=== PATIENT | male | born 2000 | race African-American/Black ===

== ENCOUNTER 2018-02-27 00:12 | Emergency (ER) | payer OTHER, SELFPAY ==
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
== END 2018-02-27 03:04 | disposition home or self-care (01) ==
LOC: ER 00:12
DX: S01.511A Laceration without foreign body of lip, initial encounter (principal); Y04.8XXA Assault by other bodily force, initial encounter; Y93.9 Activity, unspecified; Y92.9 Unspecified place or not applicable
CPT/HCPCS: 70450; 70486; 76377; 99284

== ENCOUNTER 2020-06-09 18:45 | Emergency (ER) | payer SELFPAY ==
[2020-06-09] MEDS ORDERED: LIDOCAINE 1% MPF 30 ML VIAL ONE (19:16)
--- NOTE | 2020-06-09 19:52 | EDPHYS ---
Physician Documentation [facility] Name: Fred Jama II Age: 20 yrs Sex: Male : 2000 Arrival Date: 06/09/2020 Time: 18:48 Bed 20 Private MD: ED Physician Paul Dimas HPI: 06/09 18:56 This 20 yrs old Black Male presents to ER via Law Enforcement with complaints of jmm Laceration To Arm. 18:56 The patient has a laceration occurred at home. Onset: The symptoms/episode jmm began/occurred acutely, just prior to arrival. This is a 20 year old male with no chronic medical conditions that presents to the ED with complaints of right arm laceration after breaking a window. Denies other injury. Patient states he is UTD on tetanus immunizations. . Historical: - Allergies: 18:51 No Known Allergies; hb - Home Meds: 18:51 None [Active]; hb - PMHx: 18:51 None; hb - PSHx: 18:51 None; hb - Immunization history:: Adult Immunizations up to date. - Social history:: Smoking status: Patient reports the use of cigarette tobacco products, denies chronic smoking, but will smoke occasionally. ROS: 18:56 Constitutional: Negative for fever, chills, and weight loss, Cardiovascular: Negative jmm for chest pain, palpitations, and edema, Respiratory: Negative for shortness of breath, cough, wheezing, and pleuritic chest pain. 18:56 Skin: Positive for laceration(s). 18:56 All other systems are negative. Exam: 18:56 Constitutional: This is a well developed, well nourished patient who is awake, alert, jmm and in no acute distress. Head/Face: atraumatic. Eyes: EOMI, no conjunctival erythema appreciated ENT: Moist Mucus Membranes Neck: Trachea midline, Supple Chest/axilla: Normal chest wall appearance and motion. Cardiovascular: Regular rate and rhythm. No edema appreciated Respiratory: Normal respirations, no respiratory distress appreciated Abdomen/GI: Non distended, soft Back: Normal ROM 18:56 Skin: 4 cm laceration noted to the right forearm. 18:56 Neuro: Orientation: is normal, Mentation: is normal, Memory: is normal. 18:56 Psych: Behavior/mood is pleasant, cooperative. Vital Signs: 18:49 BP 142 / 102; Pulse 68; Resp 16; Temp 97.8; Pulse Ox 100% ; Weight 88.45 kg; Height 5 hb ft. 9 in. (175.26 cm); Pain 5/10; 18:49 Body Mass Index 28.80 (88.45 kg, 175.26 cm) hb Laceration: 19:23 Wound Repair of 4cm ( 1.6in ) subcutaneous laceration to right arm. Distal jmm neuro/vascular/tendon intact. Anesthesia: Local anesthetic administered with 5 mls of 1% lidocaine. Wound prep: Moderate cleansing with betadine by me. Skin closed with 8 4-0 Prolene using simple sutures and sterile technique. Patient tolerated well. MDM: 18:56 Patient medically screened. [facility] 19:23 Data reviewed: vital signs, nurses notes. Counseling: I had a detailed discussion with carina the patient and/or guardian regarding: the historical points, exam findings, and any diagnostic results supporting the discharge/admit diagnosis, the need for outpatient follow up, to return to the emergency department if symptoms worsen or persist or if there are any questions or concerns that arise at home. ED course: Patient given wound infection return precautions. Patient understood and agrees with the plan of care. . Administered Medications: 19:47 Drug: Lidocaine (1 %) 20 ml Volume: 20 ml; Route: Infiltration; sg Disposition: 06/10 16:59 Co-signature as Attending Physician, Paul Dimas MD I agree with the assessment and [facility] plan of care. Disposition: 06/09/20 19:24 Discharged to Home. Impression: Laceration of the Right Forearm. - Condition is Stable. - Discharge Instructions: Laceration Care, Adult. - Medication Reconciliation Form, Thank You Letter, Antibiotic Education, Prescription Opioid Use form. - Follow up: Private Physician; When: 2 - 3 days; Reason: Recheck today's complaints, Continuance of care, Re-evaluation by your physician. Signatures: Ravi Bunn RN RN sg Anderson, Corey, MD MD cha Mickail, Joel, PA PA jmm Baxter, Heather, RN RN Corrections: (The following items were deleted from the chart) 06/09 19:47 19:24 06/09/2020 19:24 Discharged to Home. Impression: Laceration of the Right Forearm. sg Condition is Stable. Forms are Medication Reconciliation Form, Thank You Letter, Antibiotic Education, Prescription Opioid Use. Follow up: Private Physician; When: 2 - 3 days; Reason: Recheck today's complaints, Continuance of care, Re-evaluation by your physician. carina
--- NOTE | 2020-06-09 19:52 | ER ---
Nurse's Notes [facility] Name: Fred Jama II Age: 20 yrs Sex: Male : 2000 Arrival Date: 06/09/2020 Time: 18:48 Bed 20 Private MD: Diagnosis: Laceration of the Right Forearm Presentation: 06/09 18:49 Chief complaint: Laceration to right forearm after punching window. Coronavirus screen: hb At this time, the client does not indicate any symptoms associated with coronavirus-19. Ebola Screen: No symptoms or risks identified at this time. Complicating Factors: There are no complicating factors for this patient. Initial Sepsis Screen: Does the patient meet any 2 criteria? No. Patient's initial sepsis screen is negative. Does the patient have a suspected source of infection? No. Patient's initial sepsis screen is negative. Risk Assessment: Do you want to hurt yourself or someone else? Patient reports no desire to harm self or others. Onset of symptoms was June 09, 2020. 18:49 Acuity: PALBITO 4 hb 18:49 Method Of Arrival: Law Enforcement: [facility] Historical: - Allergies: 18:51 No Known Allergies; hb - Home Meds: 18:51 None [Active]; hb - PMHx: 18:51 None; hb - PSHx: 18:51 None; hb - Immunization history:: Adult Immunizations up to date. - Social history:: Smoking status: Patient reports the use of cigarette tobacco products, denies chronic smoking, but will smoke occasionally. Vital Signs: 18:49 BP 142 / 102; Pulse 68; Resp 16; Temp 97.8; Pulse Ox 100% ; Weight 88.45 kg; Height 5 hb ft. 9 in. (175.26 cm); Pain 5/10; 18:49 Body Mass Index 28.80 (88.45 kg, 175.26 cm) hb ED Course: 18:48 Patient arrived in ED. hb 18:50 Triage completed. hb 18:51 Arm band placed on. hb 18:54 Faustino Joaquin PA is PHCP. jm 18:54 Paul Dimas MD is Attending Physician. [facility] 19:20 No provider procedures requiring assistance completed. Patient did not have IV access sg during this emergency room visit. Dressings: Kerlix X 1; dorsal aspect of right forearm. Wound care: to laceration located on dorsal aspect of right forearm was cleaned with soap and water, dressed with 4X4s, Patient tolerated well. 19:40 Patient has correct armband on for positive identification. Bed in low position. Call sg light in reach. Side rails up X2. Pulse ox on. NIBP on. Administered Medications: 19:47 Drug: Lidocaine (1 %) 20 ml Volume: 20 ml; Route: Infiltration; sg Outcome: 19:24 Discharge ordered by . carina 19:40 Discharged to home ambulatory, with [place] [employer] sg 19:47 Patient left the ED. sg 19:51 Condition: good sg 19:51 Discharge instructions given to patient, police, Instructed on discharge instructions, follow up and referral plans. safety practices, wound care, Demonstrated understanding of instructions, follow-up care. Signatures: Ravi Bunn RN RN Faustino Joaquin PA PA jmm Hall, Patricia, RN RN Imani Najera RN RN Corrections: (The following items were deleted from the chart) 19:35 18:49 Method Of Arrival: Law Enforcement: [place] [employer] ph 19:52 19:40 Discharged to home ambulatory, with [place] [employer] sg sg
[2020-06-11 23:16] VITALS: BP 142/102; TEMP 97.8; O2SAT 100
== END 2020-06-09 19:47 | disposition home or self-care (01) ==
LOC: ER 18:45
PROC: 0JQG0ZZ Repair Right Lower Arm Subcutaneous Tissue and Fascia, Open Approach (ICD-10-PCS; principal; 2020-06-09)
DX: S51.811A Laceration without foreign body of right forearm, initial encounter (principal); W25.XXXA Contact with sharp glass, initial encounter; Y93.9 Activity, unspecified; Y92.009 Unspecified place in unspecified non-institutional (private) residence as the place of occurrence of the external cause
CPT/HCPCS: 99283

== ENCOUNTER 2024-08-19 07:29 | Emergency (ER) | payer SELFPAY ==
--- NOTE | 2024-08-19 07:47 | EDPHYS ---
Physician Documentation [facility] Name: Fred Jama II Age: 24 yrs Sex: Male : 2000 Arrival Date: 08/19/2024 Time: 07:29 Bed 14 Private MD: ED Physician Renato Cotter HPI: 08/19 07:48 This 24 yrs old Black Male presents to ER via Ambulatory with complaints of Abdominal ec2 Pain, Nausea, Headache, Fatigue. 07:48 Patient arrives today for improving viral symptoms ongoing for the past week. States ec2 that he has got better and needs a will turn to work excuse otherwise. States that he has an occasional headache as well as some nausea. No vomiting or diarrhea which had previously been present had now resolved. Occasional cough as well as occasional sore throat. Historical: - Allergies: 07:41 No Known Allergies; ll1 - Home Meds: 07:41 None [Active]; ll1 - PMHx: 07:41 None; ll1 - PSHx: 07:41 None; ll1 - Immunization history:: Adult Immunizations up to date. - Infectious Disease History:: Denies. - Social history:: Smoking status: Patient reports the use of cigarette tobacco products, smokes one-half pack cigarettes per day. ROS: 07:48 Constitutional: as per hpi ec2 Exam: 07:48 Constitutional: GEN: NAD Head: atraumatic Eyes: EOMI Ears: External ears are ec2 normal. CV: regular rate LUNGS: no respiratory distress ABD: non-distended SKIN: no evidence of rashes MSK: no evidence of trauma Vital Signs: 07:41 BP 107 / 54; Pulse 54; Resp 17; Temp 98; Pulse Ox 98% ; Weight 90.26 kg; Height 5 ft. ll1 10 in. ; Pain 3/10; 07:41 Body Mass Index 28.55 (90.26 kg, 177.8 cm) ll1 07:41 Pain Scale: Adult ll1 MDM: 07:41 Medical Screening Exam initiated ec2 07:48 Data reviewed: vital signs. ED course: Patient arrives today for a work note in the ec2 setting of recent viral infection with improving symptoms. Examination remarkable for well-appearing nontoxic hemodynamically stable individuals otherwise in no acute distress. Patient with improving symptoms and tolerating p.o., does not appear clinically dehydrated. Doubt pneumonia given lack of significant respiratory symptoms and reassuring examination. Considered obtaining lab work such as CBC and metabolic profile as well as a chest x-ray however given the improvement symptoms did not feel necessary at this time. Will discharge home have patient follow-up with PCP. Return precautions given.. Administered Medications: 08:00 Drug: MetoCLOPramide PO 10 mg PO once Route: PO; ll1 08:02 Follow up: Response: No adverse reaction ll1 08:00 Drug: Acetaminophen PO 1000 mg PO once Route: PO; ll1 08:02 Follow up: Response: No adverse reaction ll1 08:00 Drug: Ibuprofen PO 800 mg PO once Route: PO; ll1 08:02 Follow up: Response: No adverse reaction ll1 Disposition Summary: 08/19/24 07:47 Discharge Ordered Notes: Location: Home ec2 Condition: Stable ec2 Diagnosis - Viral infection, unspecified ec2 Followup: ec2 - With: Private Physician - When: - Reason: Re-evaluation by your physician Discharge Instructions: - Discharge Summary Sheet ll1 - Viral Illness, Adult ec2 Forms: - Work release form ll1 - Medication Reconciliation Form ec2 - Antibiotic Education ec2 - Prescription Opioid Use ec2 - Patient Portal Instructions ec2 - Leadership Thank You Letter ec2 Prescriptions: - Compazine 10 mg Oral Tablet - take 1 tablet ORAL route every 8 hours As needed; 10 tablet; Refills: 0, ec2 Product Selection Permitted Signatures: Mariela Escalera RN RN ll1 Renato Cotter MD MD ec2
--- NOTE | 2024-08-19 07:47 | ER ---
Nurse's Notes [facility] Name: Fred Jama II Age: 24 yrs Sex: Male : 2000 Arrival Date: 08/19/2024 Time: 07:29 Bed 14 Private MD: Diagnosis: Viral infection, unspecified Presentation: 08/19 07:41 Chief complaint: Patient states: Abdominal pain, nausea, MENDOZA, fatigue started . ll1 No fever, starting to feel better now. Coronavirus screen: Client denies travel out of the [place] in the last 14 days. fatigue, headache, muscle pain, nausea, Client presents with at least one sign or symptom that may indicate coronavirus-19. Standard/surgical mask placed on the client. Ebola Screen: Patient denies travel to an Ebola-affected area in the 21 days before illness onset. Initial Sepsis Screen: Does the patient meet any 2 criteria? No. Patient's initial sepsis screen is negative. Does the patient have a suspected source of infection? No. Patient's initial sepsis screen is negative. Risk Assessment: Do you want to hurt yourself or someone else? Patient reports no desire to harm self or others. Onset of symptoms was August 14, 2024. 07:41 Method Of Arrival: Ambulatory ll1 07:41 Acuity: PABLITO 4 ll1 Triage Assessment: 07:43 General: Appears in no apparent distress. Behavior is calm, cooperative, appropriate ll1 for age. General: Reports fatigue for. Pain: Complains of pain in abdomen Pain currently is 3 out of 10 on a pain scale. Quality of pain is described as aching, crampy. Neuro: Reports headache weakness. GI: Reports nausea. Historical: - Allergies: 07:41 No Known Allergies; ll1 - Home Meds: 07:41 None [Active]; ll1 - PMHx: 07:41 None; ll1 - PSHx: 07:41 None; ll1 - Immunization history:: Adult Immunizations up to date. - Infectious Disease History:: Denies. - Social history:: Smoking status: Patient reports the use of cigarette tobacco products, smokes one-half pack cigarettes per day. Screenin:00 [facility] ED Fall Risk Assessment (Adult) History of falling in the last 3 months, ll1 including since admission No falls in past 3 months (0 pts) Confusion or Disorientation No (0 pts) Intoxicated or Sedated No (0 pts) Impaired Gait No (0 pts) Mobility Assist Device Used No (0 pt) Altered Elimination No (0 pt) Score/Fall Risk Level 0 - 2 = Low Risk Oriented to surroundings, Hourly rounding (assess needs \T\ fall precautionary measures) done. Abuse screen: Denies threats or abuse. Nutritional screening: No deficits noted. Tuberculosis screening: No symptoms or risk factors identified. Assessment: 08:00 Reassessment: No changes from previously documented assessment. Patient and/or family ll1 updated on plan of care and expected duration. Pain level reassessed. Patient is alert, oriented x 3, equal unlabored respirations, skin warm/dry/pink. 08:01 GI: Bowel sounds present X 4 quads. Abd is soft and non tender X 4 quads. ll1 Vital Signs: 07:41 BP 107 / 54; Pulse 54; Resp 17; Temp 98; Pulse Ox 98% ; Weight 90.26 kg; Height 5 ft. ll1 10 in. ; Pain 3/10; 07:41 Body Mass Index 28.55 (90.26 kg, 177.8 cm) ll1 07:41 Pain Scale: Adult ll1 ED Course: 07:33 Patient arrived in ED. im 07:38 Renato Cotter MD is Attending Physician. ec2 07:40 Mariela Escalera, MULUGETA is Primary Nurse. ll1 07:40 Arm band placed on Patient placed in an exam room, on a stretcher. ll1 07:43 Triage completed. ll1 08:01 Patient has correct armband on for positive identification. Provided Education on: ll1 return to ED for worsening symptoms. 08:01 No provider procedures requiring assistance completed. Patient did not have IV access ll1 during this emergency room visit. Administered Medications: 08:00 Drug: MetoCLOPramide PO 10 mg PO once Route: PO; ll1 08:02 Follow up: Response: No adverse reaction ll1 08:00 Drug: Acetaminophen PO 1000 mg PO once Route: PO; ll1 08:02 Follow up: Response: No adverse reaction ll1 08:00 Drug: Ibuprofen PO 800 mg PO once Route: PO; ll1 08:02 Follow up: Response: No adverse reaction ll1 Medication: 08:01 VIS not applicable for this client. ll1 Outcome: 07:47 Discharge ordered by . ec2 08:01 Discharged to home ambulatory, 1 08:01 Condition: stable 08:01 Discharge instructions given to patient, Instructed on discharge instructions, follow up and referral plans. medication usage, Demonstrated understanding of instructions, follow-up care, medications, Prescriptions given X 1, 08:02 Patient left the ED. 1 Signatures: Mariela Escalera RN RN 1 Abigail Bhandari Edwin, MD MD ec2
[2024-08-19] MEDS ORDERED: METOCLOPRAMIDE 5 MG TAB ONE (07:51)
[2024-08-19] MEDS ORDERED: ACETAMINOPHEN 500 MG TAB ONE (07:57)
[2024-08-19] MEDS ORDERED: IBUPROFEN 400 MG TAB ONE (07:57)
[2024-08-19 08:57] VITALS: BP 107/54; TEMP 98; O2SAT 98
== END 2024-08-19 08:02 | disposition home or self-care (01) ==
LOC: ER 07:29
DX: B34.9 Viral infection, unspecified (principal); F17.210 Nicotine dependence, cigarettes, uncomplicated
CPT/HCPCS: 99283

== ENCOUNTER 2024-09-08 20:35 | Emergency (ER) | payer SELFPAY ==
--- NOTE | 2024-09-08 22:04 | EDPHYS ---
Physician Documentation [facility] Name: Fred Jama II Age: 24 yrs Sex: Male : 2000 Arrival Date: 09/08/2024 Time: 20:35 Bed IW2 Private MD: ED Physician Donald Posadas HPI: 09/08 21:25 This 24 yrs old Black Male presents to ER via Ambulatory with complaints of Ankle cp Injury. 21:25 The patient presents with pain, that is chronic. The complaints affect the left ankle. cp 21:25 Onset: The symptoms/episode began/occurred 2022. cp 21:25 Context: resulted from an unknown cause, The patient can fully bear weight on the cp affected extremity. the patient is able to ambulate, with mild difficulty. Associated signs and symptoms: The patient has no apparent associated signs or symptoms. Patient denies any specific injury and reports pain since 2022 with pain worse over past couple weeks. Historical: - Allergies: 21:17 No Known Allergies; cm10 - Home Meds: 21:17 None [Active]; cm10 - PMHx: 21:17 None; cm10 - PSHx: 21:17 Appendectomy; HAND; cm10 - Immunization history:: Adult Immunizations up to date. - Infectious Disease History:: Denies. - Social history:: Smoking status: Patient denies any tobacco usage or history of. ROS: 21:30 MS/extremity: Positive for pain, tenderness, of the left ankle, cp 21:30 Constitutional: Negative for body aches, chills, fever, cp 21:30 Neck: Negative for pain with movement, pain at rest, stiffness, cp 21:30 Respiratory: Negative for cough, shortness of breath, wheezing, 21:30 Back: Negative for pain at rest, pain with movement, 21:30 Neuro: Negative for altered mental status, dizziness, numbness, tingling, weakness, 21:30 All other systems are negative, Exam: 21:33 Constitutional: The patient appears in no acute distress, alert, awake, non-toxic, well cp developed, well nourished, uncomfortable, ambulating with limp 21:33 Head/Face: Normocephalic, atraumatic. cp 21:33 Neck: ROM/movement: is normal, is supple, without pain, no range of motions limitations, 21:33 Cardiovascular: Rate: normal, 21:33 Respiratory: the patient does not display signs of respiratory distress, Respirations: normal, no use of accessory muscles, no retractions, 21:33 Back: pain, is absent, ROM is normal, 21:33 Musculoskeletal/extremity: Extremities: noted in the left lateral ankle: pain, tenderness, There is no evidence of decreased ROM, deformity, Vital Signs: 21:15 BP 120 / 88; Pulse 65; Resp 18; Temp 98.6; Pulse Ox 98% on R/A; Weight 88.45 kg; Height cm10 5 ft. 10 in. ; Pain 5/10; 21:15 Body Mass Index 27.98 (88.45 kg, 177.8 cm) cm10 21:15 Pain Scale: Adult cm10 MDM: 21:19 Medical Screening Exam initiated cp 21:35 Differential diagnosis: fracture, sprain, arthritis, gout. cp 22:02 Data reviewed: vital signs, nurses notes, radiologic studies, plain films, and as a cp result, I will discharge patient. 22:02 Independent interpretation of the following test(s) in the Emergency Department X-Ray: cp My interpretation is images of left ankle negative for fracture. Counseling: I had a detailed discussion with the patient and/or guardian regarding the historical points, exam findings, and any diagnostic results supporting the discharge/admit diagnosis, radiology results, the need for outpatient follow up, a orthopedic surgeon, to return to the emergency department if symptoms worsen or persist or if there are any questions or concerns that arise at home. Response to treatment: the patient's symptoms have mildly improved after treatment, and as a result, I will discharge patient. 12 21:20 Order name: XRAY Ankle LEFT 3 view cp 09/08 22:01 Order name: Aircast Ankle Splint; Complete Time: 22:17 cp Administered Medications: No medications were administered Disposition: 09/09 18:18 Chart complete. cp Disposition Summary: 09/08/24 22:03 Discharge Ordered Notes: Location: Home cp Problem: new cp Symptoms: are unchanged cp Condition: Stable cp Diagnosis - Pain in left ankle and joints of left foot cp Followup: cp - With: Clark Spear MD - When: 1 week - Reason: pain continues Discharge Instructions: - Discharge Summary Sheet cp - Elastic Bandage and RICE Therapy cp - Ankle Pain cp Forms: - Medication Reconciliation Form cp - Antibiotic Education cp - Prescription Opioid Use cp - Patient Portal Instructions cp - Leadership Thank You Letter cp Prescriptions: - Ibuprofen 800 mg Oral Tablet - take 1 tablet ORAL route every 8 hours As needed take with food; 30 tablet; cp Refills: 0, Product Selection Permitted Signatures: Dispatcher [employer] EDMS Paul Brice PA PA cp Martinez, Clarissa RN RN cm10 Corrections: (The following items were deleted from the chart) 17:28 17:28 MS/extremity: Positive for pain, tenderness, of the left ankle, cp cp 18:14 12/02 21:25 Onset: The symptoms/episode began/occurred 2 year(s) ago, cp cp
--- NOTE | 2024-09-08 22:04 | ER ---
Nurse's Notes [facility] Name: Fred Jama II Age: 24 yrs Sex: Male : 2000 Arrival Date: 09/08/2024 Time: 20:35 Bed IW2 Private MD: Diagnosis: Pain in left ankle and joints of left foot Presentation: 09/08 21:15 Chief complaint: Patient states: LEFT ANKLE PAIN X1 YR. PT STATES THAT THE PAIN IS cm10 GETTING WORSE NOW THAT IT IS GETTING COLD. PT ALSO REPORTS THAT ANYTIME HE MOVES HIS FOOT HE CAN HEAR HIS ANKLE POP. Coronavirus screen: Client denies travel out of the [place] in the last 14 days. Ebola Screen: Patient denies travel to an Ebola-affected area in the 21 days before illness onset. No symptoms or risks identified at this time. Initial Sepsis Screen: Does the patient meet any 2 criteria? No. Patient's initial sepsis screen is negative. Does the patient have a suspected source of infection? No. Patient's initial sepsis screen is negative. Risk Assessment: Do you want to hurt yourself or someone else? Patient reports no desire to harm self or others. Onset of symptoms was September 08, 2024. 21:15 Method Of Arrival: Ambulatory cm10 21:15 Acuity: PABLITO 4 cm10 Triage Assessment: 21:17 General: Appears in no apparent distress. comfortable, Behavior is calm, cooperative. cm10 Pain: Complains of pain in left lateral ankle Pain does not radiate. Pain currently is 5 out of 10 on a pain scale. Pain began 1 YEAR AGO. Neuro: No deficits noted. Level of Consciousness is awake, alert, obeys commands, Oriented to person, place, time, situation, Appropriate for age. Respiratory: No deficits noted. Airway is patent Respiratory effort is even, unlabored, Respiratory pattern is regular, symmetrical. 22:18 Musculoskeletal: Reports pain in left leg and left lateral ankle. vc1 Historical: - Allergies: 21:17 No Known Allergies; cm10 - Home Meds: 21:17 None [Active]; cm10 - PMHx: 21:17 None; cm10 - PSHx: 21:17 Appendectomy; HAND; cm10 - Immunization history:: Adult Immunizations up to date. - Infectious Disease History:: Denies. - Social history:: Smoking status: Patient denies any tobacco usage or history of. Screenin:17 [facility] ED Fall Risk Assessment (Adult) History of falling in the last 3 months, cp4 including since admission No falls in past 3 months (0 pts) Confusion or Disorientation No (0 pts) Intoxicated or Sedated No (0 pts) Impaired Gait No (0 pts) Mobility Assist Device Used No (0 pt) Altered Elimination No (0 pt) Score/Fall Risk Level 0 - 2 = Low Risk Oriented to surroundings, Maintained a safe environment, Educated pt \T\ family on fall prevention, incl call for assistance when getting out of bed. Abuse screen: Denies threats or abuse. Nutritional screening: No deficits noted. Tuberculosis screening: No symptoms or risk factors identified. Vital Signs: 21:15 BP 120 / 88; Pulse 65; Resp 18; Temp 98.6; Pulse Ox 98% on R/A; Weight 88.45 kg; Height cm10 5 ft. 10 in. ; Pain 5/10; 21:15 Body Mass Index 27.98 (88.45 kg, 177.8 cm) cm10 21:15 Pain Scale: Adult cm10 ED Course: 20:37 Patient arrived in ED. jj6 20:39 Paul Brice PA is PHCP. cp 20:39 Donald Posadas MD is Attending Physician. cp 21:17 Triage completed. cm10 21:17 Arm band placed on right wrist. Patient placed in waiting room. cm10 21:40 XRAY Ankle LEFT 3 view In Process Unspecified. EDMS 22:01 Clark Spear MD is Referral Physician. cp 22:17 No provider procedures requiring assistance completed. Patient did not have IV access cp4 during this emergency room visit. 22:18 Patient has correct armband on for positive identification. seen in triage. Provided vc1 Education on: alternate between tylenol and motrin. Administered Medications: No medications were administered Medication: 22:18 VIS not applicable for this client. vc1 Outcome: 22:03 Discharge ordered by . cp 22:18 Discharged to home ambulatory, vc1 22:18 Condition: good 22:18 Discharge instructions given to patient, Instructed on discharge instructions, follow up and referral plans. medication usage, Demonstrated understanding of instructions, follow-up care, medications, Prescriptions given X 1, 22:18 Patient left the ED. vc1 Signatures: Dispatcher [employer] Paul Wetzel PA PA cp Jeffries, Jennifer jj6 Aysha Hu RN RN vc1 Yara Ramsay RN RN cm10 Erica Beaulieu cp4
--- NOTE | 2024-09-08 22:40 | RAD REPORT ---
EXAMINATION: XR Ankle Left 3 View CLINICAL INDICATION: Male, 24 years old. [facility] [[email or web address]] MAIN PAIN Bed Name: 4 TECHNIQUE: 3 view radiographs of the left ankle were obtained. COMPARISON: No prior exam. FINDINGS: No bone or joint abnormality seen. IMPRESSION: No acute or significant abnormalities.
[2024-09-09 01:51] VITALS: BP 120/88; TEMP 98.6; O2SAT 98
== END 2024-09-08 22:18 | disposition home or self-care (01) ==
LOC: ER 20:35
DX: M25.572 Pain in left ankle and joints of left foot (principal)
CPT/HCPCS: 99283

== ENCOUNTER 2025-02-08 08:35 | Emergency (ER) | payer SELFPAY ==
[2025-02-08] MEDS ORDERED: METHYLPREDNISOLONE 125 MG INJ ONE (09:06)
[2025-02-08] MEDS ORDERED: LEVALBUTEROL 1.25 MG/3 ML NEB ONE (09:06)
[2025-02-08] MEDS ORDERED: IPRATROPIUM BROM 0.5MG/2.5ML ONE (09:06)
[2025-02-08] MEDS ORDERED: CEFTRIAXONE 1000 MG/VIAL ONE (09:06)
[2025-02-08] MEDS ORDERED: dexAMETHasone 10 MG/ML VIAL ONE (09:07)
[2025-02-08] MEDS ORDERED: FAMOTIDINE 20 MG/2 ML VIAL IV ONE (09:07)
[2025-02-08] MEDS ORDERED: predniSONE 20 MG TAB ONE (09:07)
[2025-02-08] MEDS ORDERED: AZITHROMYCIN 500 MG INJ IVPB ONE (09:07)
[2025-02-08] MEDS ORDERED: NA CHLORIDE 0.9% 250 ML ONE (09:07)
[2025-02-08] MEDS ORDERED: NA CHLORIDE 0.9% 50 ML ONE (09:08)
[2025-02-08] MEDS ORDERED: NA CHLORIDE 0.9% 1,000 ML ONE (09:08)
[2025-02-08 09:16] LABS: Absolute Basophils 0.1 K/uL (0-0.5); Absolute Eosinophils 0.3 K/uL (0-0.5); Absolute Monocytes 0.8 K/uL (0.1-1.3); Absolute Neutrophil 6.5 K/uL (1.8-8.0); Basophils % 0.7 % (0-1.3); Eosinophils % 2.7 % (0-4.4); Hematocrit 45.4 % (39.6-49.0); Hemoglobin 15.7 g/dL (13.6-17.9); Lymphocytes % 28.1 % (15.3-44.8); MCH 30.1 pg (27.0-35.0); MCHC 34.5 g/dL (32.0-36.0); MCV 87.3 fL (80-100); MPV 7.6 fL (7.6-11.3); Monocytes % 7.3 % (3.3-12.3); Neutrophils % 61.2 % (41.7-73.7); Nucleated Red Blood Cells % 0.2 % (0-0); Platelets 324 thou/uL (152-406); Red Cell Distribution Width 13.3 % (12.1-15.2)
[2025-02-08] MEDS ORDERED: Magnesium Sulfate 2gm IVPB 2 G/50 ML BAG IV ONE (09:27)
[2025-02-08] MEDS ORDERED: HYDROCODONE/CHLORPHEN 5 ML/OSYR ONE (09:27)
[2025-02-08 09:35] LABS: Albumin 3.6 g/dL (3.4-5.0); Anion Gap 10.9 mEq/L (5.0-15.0); Bilirubin Total 0.6 mg/dL (0.2-1.0); Globulin 3.6 g/dL (2.3-3.5); Potassium 3.9 mEq/L (3.5-5.1); Protein, Total 7.2 g/dL (6.4-8.2)
--- NOTE | 2025-02-08 09:43 | RAD REPORT ---
EXAMINATION: TWO VIEW CHEST XR CLINICAL INDICATION: Cough;Congestion TECHNIQUE: 2 views of the chest was performed. COMPARISON: 02/25/2015 FINDINGS: The lungs are well inflated and clear. The heart is normal in size. No displaced fractures evident. IMPRESSION: No acute or significant abnormalities.
[2025-02-08 09:51] LABS: Influenza A Ag Negative; Influenza B Ag Negative; SARS-CoV-2 Antigen Rapid Res Negative (Negative)
--- NOTE | 2025-02-08 10:12 | ER ---
Nurse's Notes [facility] Name: Fred Jama II Age: 24 yrs Sex: Male : 2000 Arrival Date: 02/08/2025 Time: 08:35 Bed 5 Private MD: Diagnosis: Moderate persistent asthma;Moderate persistent asthma with (acute) exacerbation;Tobacco abuse counseling;Tobacco use;Cough;Cough variant asthma Presentation: 02/08 08:50 Chief complaint: Patient states: Cough, sore throat, nausea, diarrhea for 6 days. ll1 Coronavirus screen: Client denies travel out of the [place] in the last 14 days. congestion, cough unrelated to allergies, difficulty breathing, Client presents with at least one sign or symptom that may indicate coronavirus-19. Standard/surgical mask placed on the client. Ebola Screen: Patient denies travel to an Ebola-affected area in the 21 days before illness onset. Initial Sepsis Screen: Does the patient meet any 2 criteria? No. Patient's initial sepsis screen is negative. Does the patient have a suspected source of infection? No. Patient's initial sepsis screen is negative. Risk Assessment: Do you want to hurt yourself or someone else? Patient reports no desire to harm self or others. Onset of symptoms was February 02, 2025. 08:50 Method Of Arrival: Ambulatory ll1 08:50 Acuity: PABLITO 3 ll1 Triage Assessment: 08:53 General: Appears uncomfortable, Behavior is calm, cooperative, appropriate for age, ll1 Reports feeling ill for fatigue for. Pain: Complains of pain in throat Pain currently is 6 out of 10 on a pain scale. Quality of pain is described as aching. EENT: Reports pain when swallowing. Neuro: Reports headache. Respiratory: Reports shortness of breath cough that is pain with cough. GI: Reports diarrhea, nausea. Historical: - Allergies: 08:44 No Known Drug Allergies; ll1 - PSHx: 08:44 Appendectomy; hand; ll1 - Immunization history:: Adult Immunizations up to date. - Infectious Disease History:: Denies. - Social history:: Smoking status: Reported history of juuling and/or vaping. Patient denies any tobacco usage or history of. Screenin:47 [facility] ED Fall Risk Assessment (Adult) History of falling in the last 3 months, mb9 including since admission No falls in past 3 months (0 pts) Confusion or Disorientation No (0 pts) Intoxicated or Sedated No (0 pts) Impaired Gait No (0 pts) Mobility Assist Device Used No (0 pt) Altered Elimination No (0 pt) Score/Fall Risk Level 0 - 2 = Low Risk Oriented to surroundings, Maintained a safe environment, Educated pt \T\ family on fall prevention, incl call for assistance when getting out of bed. Abuse screen: Denies threats or abuse. Nutritional screening: No deficits noted. Tuberculosis screening: No symptoms or risk factors identified. Assessment: 09:13 General: Appears uncomfortable, Behavior is cooperative. Pain: Denies pain. Neuro: mb9 Fleming Agitation-Sedation Scale (RASS): 0 - Alert and Calm Level of Consciousness is awake, alert, obeys commands, Oriented to person, place, time, situation, Appropriate for age. Cardiovascular: Heart tones S1 S2 present Patient's skin is warm and dry. Respiratory: Airway is patent Respiratory effort is even, labored, Respiratory pattern is regular, Breath sounds with wheezes bilaterally. GI: Reports diarrhea. : No signs and/or symptoms were reported regarding the genitourinary system. EENT: Throat is reddened. Derm: Skin is pink, warm \T\ dry. Musculoskeletal: Range of motion: intact in all extremities. 10:30 Reassessment: D/C pending IV antibiotics. mb9 11:26 Reassessment: Pt states that he does not want to wait to complete ABX and does not want cm10 the magnesium. Pt states that he would like to go home. Vital Signs: 08:50 BP 145 / 81; Pulse 88; Resp 18; Temp 97.7; Pulse Ox 97% on R/A; Weight 88.45 kg; Height ll1 5 ft. 10 in. ; Pain 6/10; 10:30 BP 149 / 84; Pulse 74; Resp 18; Pulse Ox 100% on R/A; mb9 11:28 BP 131 / 72; Pulse 70; Resp 18; Pulse Ox 98% on R/A; mb9 08:50 Body Mass Index 27.98 (88.45 kg, 177.8 cm) ll1 08:50 Pain Scale: Adult ll1 ED Course: 08:39 Patient arrived in ED. gl 08:44 Arm band placed on Patient placed in an exam room, on a stretcher. ll1 08:46 Inez George, MULUGETA is Primary Nurse. mb9 08:46 Bed in low position. Call light in reach. Side rails up X 1. Client placed on mb9 continuous cardiac and pulse oximetry monitoring. NIBP monitoring applied. 08:52 Paul Dimas MD is Attending Physician. luis angel 08:53 Triage completed. ll1 09:11 Group A Streptococcus Rapid Sent. mb9 09:11 COVID-19 Ag + Flu A+B Ag Sent. mb9 09:11 Comprehensive Metabolic Panel Sent. mb9 09:11 CBC with Diff Sent. mb9 09:12 Initial lab(s) drawn, by id, sent to lab. Inserted saline lock: 20 gauge in right mb9 antecubital area, using aseptic technique. Blood collected. Flushed with 10 mL NS. 09:14 Provided Education on: press call light if needing anything. mb9 09:14 No provider procedures requiring assistance completed. mb9 09:40 Chest Pa And Lat (2 Views) XRAY In Process Unspecified. EDMS 10:12 Pete Crespo MD is Referral Physician. luis angel 11:27 IV discontinued, intact, bleeding controlled, No redness/swelling at site. Pressure cm10 dressing applied. Administered Medications: 11:27 Discontinued: magnesium sulfate2 grams IVPB once over 1 hrs mb9 09:20 Drug: Famotidine IVP 20 mg IVP once; dilute with 10 mL 0.9% NaCl; give over 2 minutes ss Route: IVP; Site: right antecubital; 10:24 Follow up: Response: No adverse reaction mb9 09:20 Drug: NS 0.9% IV 1000 ml IV at 1000 ml once; to be given as a bolus over 60 minutes ss Route: IV; Rate: 1000 ml; Site: right antecubital; 10:24 Follow up: Response: No adverse reaction; IV Status: Completed infusion mb9 09:21 Drug: predniSONE PO 60 mg PO once Route: PO; ss 10:19 Follow up: Response: No adverse reaction; Marked relief of symptoms ss 09:25 Drug: MethylPrednisoLONE IVP 125 mg IVP once Route: IVP; Site: right antecubital; ss 10:24 Follow up: Response: No adverse reaction 9 09:25 Drug: Levalbuterol Inhalation 3.75 mg Inhalation once Route: Inhalation; ss 09:25 Drug: Ipratropium Inhalation Aerosol 0.5 mg Inhalation once Route: Inhalation; ss 09:26 Drug: Dexamethasone PO 1 mg PO once; to nebulizer Route: PO; ss 10:19 Follow up: Response: No adverse reaction ss 09:26 Drug: Rocephin IV 1 grams IV at per protocol once; Given slow IV push per pharmacy ss instructions Route: IV; Rate: per protocol; Site: right antecubital; 10:24 Follow up: Response: No adverse reaction; IV Status: Completed infusion mb9 09:30 Drug: Tussionex Pennkinetic ER PO Suspension 5 ml PO once Route: PO; mb9 09:50 Follow up: Response: No adverse reaction mb9 10:19 Drug: Zithromax IVPB 500 mg IVPB once over 1 hrs; mix in 250 mL NS Route: IVPB; Infused ss Over: 1 hrs; Site: right antecubital; 11:27 Follow up: Response: No adverse reaction; IV Status: Completed infusion mb9 10:19 Drug: Magnesium Sulfate IVPB 2 grams IVPB once over 1 hrs Route: IVPB; Infused Over: 1 ss hrs; Site: right antecubital; 11:28 Follow up: Response: No adverse reaction; IV Status: Order to discontinue infusion cm10 10:23 CANCELLED (Physician Discretion): ondansetron 8 mg IVP once; over 2 minutes mb9 10:23 Drug: Ondansetron IVP 4 mg IVP once; over 2 minutes Route: IVP; Site: right antecubital;mb9 10:50 Follow up: Response: No adverse reaction mb9 10:26 Drug: Levalbuterol Inhalation 2.5 mg Inhalation once Route: Inhalation; mb9 Medication: 08:47 VIS not applicable for this client. mb9 Outcome: 10:12 Discharge ordered by MD. plasencia 11:27 Discharged to home ambulatory, 10 11:27 Condition: good 11:27 Discharge instructions given to patient, Instructed on discharge instructions, follow up and referral plans. medication usage, Demonstrated understanding of instructions, follow-up care, medications, Prescriptions given X 7 11:27 Patient left the ED. cm10 Signatures: Dispatcher [employer] EDCA Paul Dimas MD MD cha Blanchard, Shelby, RN RN Mariela Webber RN RN ll1 Inez George RN RN mb9 Yara Ramsay RN RN cm10 Holli Oden, Reg Reg gl Corrections: (The following items were deleted from the chart) 08:54 08:50 Pulse 88bpm; Resp 18bpm; Pulse Ox 97% RA; Temp 97.7F; 88.45 kg; Height 5 ft. 10 ll1 in.; BMI: 27.9; Pain 6/10, Adult; ll1
--- NOTE | 2025-02-08 10:12 | EDPHYS ---
Physician Documentation [facility] Name: Fred Jama II Age: 24 yrs Sex: Male : 2000 Arrival Date: 02/08/2025 Time: 08:35 Bed 5 Private MD: ED Physician Paul Dimas HPI: 02/08 09:11 This 24 yrs old Black Male presents to ER via Ambulatory with complaints of Painful luis angel Cough, Sore Throat. 09:11 The patient or guardian reports cough, difficulty breathing, flu symptoms, arthralgias, luis angel low-grade fever, myalgias. Severity of symptoms: At their worst the symptoms were moderate, in the emergency department the symptoms are unchanged. Modifying factors: The symptoms are alleviated by nothing, cool environment, inhaler, the symptoms are aggravated by dust, heat, talking. Associated signs and symptoms: Pertinent positives: rhinorrhea, sore throat. The patient has experienced similar episodes in the past, several times. Historical: - Allergies: 08:44 No Known Drug Allergies; ll1 - PSHx: 08:44 Appendectomy; hand; ll1 - Immunization history:: Adult Immunizations up to date. - Infectious Disease History:: Denies. - Social history:: Smoking status: Reported history of juuling and/or vaping. Patient denies any tobacco usage or history of. ROS: 09:12 Constitutional: Negative for fever, chills, and weight loss, Eyes: Negative for injury, luis angel pain, redness, and discharge, ENT: Negative for injury, pain, and discharge, Neck: Negative for injury, pain, and swelling, Cardiovascular: Negative for chest pain, palpitations, and edema, Abdomen/GI: Negative for abdominal pain, nausea, vomiting, diarrhea, and constipation, Back: Negative for injury and pain, : Negative for injury, bleeding, discharge, and swelling, MS/Extremity: Negative for injury and deformity, Skin: Negative for injury, rash, and discoloration, Neuro: Negative for headache, weakness, numbness, tingling, and seizure, Psych: Negative for depression, anxiety, suicide ideation, homicidal ideation, and hallucinations, Allergy/Immunology: Negative for hives, rash, and allergies, Endocrine: Negative for neck swelling, polydipsia, polyuria, polyphagia, and marked weight changes, Hematologic/Lymphatic: Negative for swollen nodes, abnormal bleeding, and unusual bruising, 09:12 Respiratory: Positive for cough, "sounds productive", Exam: 09:12 Constitutional: This is a well developed, well nourished patient who is awake, alert, luis angel and in no acute distress. Head/Face: Normocephalic, atraumatic. Eyes: Pupils equal round and reactive to light, extra-ocular motions intact. Lids and lashes normal. Conjunctiva and sclera are non-icteric and not injected. Cornea within normal limits. Periorbital areas with no swelling, redness, or edema. ENT: Nares patent. No nasal discharge, no septal abnormalities noted. Tympanic membranes are normal and external auditory canals are clear. Oropharynx with no redness, swelling, or masses, exudates, or evidence of obstruction, uvula midline. Mucous membranes moist. Neck: Trachea midline, no thyromegaly or masses palpated, and no cervical lymphadenopathy. Supple, full range of motion without nuchal rigidity, or vertebral point tenderness. No Meningismus. Chest/axilla: Normal chest wall appearance and motion. Nontender with no deformity. No lesions are appreciated. Cardiovascular: Regular rate and rhythm with a normal S1 and S2. No gallops, murmurs, or rubs. Normal PMI, no JVD. No pulse deficits. Abdomen/GI: Soft, non-tender, with normal bowel sounds. No distension or tympany. No guarding or rebound. No evidence of tenderness throughout. Back: No spinal tenderness. No costovertebral tenderness. Full range of motion. Male : Normal genitalia with no discharge or lesions. Skin: Warm, dry with normal turgor. Normal color with no rashes, no lesions, and no evidence of cellulitis. MS/ Extremity: Pulses equal, no cyanosis. Neurovascular intact. Full, normal range of motion., bilateral aka Neuro: Awake and alert, GCS 15, oriented to person, place, time, and situation. Cranial nerves II-XII grossly intact. Motor strength 5/5 in all extremities. Sensory grossly intact. Cerebellar exam normal. Normal gait. Psych: Awake, alert, with orientation to person, place and time. Behavior, mood, and affect are within normal limits. 09:12 Respiratory: mild respiratory distress is noted, moderate respiratory distress is noted, Respirations: labored breathing, that is mild, that is moderate, Breath sounds: bronchial sounds, that are moderate, are scattered, decreased breath sounds, that are moderate, are scattered, rhonchi, that are moderate, are scattered, stridor, is not appreciated, + upper airway congestion. wheezing: inspiratory expiratory that is moderate, is heard diffusely, 09:12 Musculoskeletal/extremity: DVT Exam: No signs of deep vein thrombosis. no pain, no swelling, no tenderness, negative Homans' sign noted on exam, no appreciated bluish discoloration, no erythema, no increased warmth, Vital Signs: 08:50 BP 145 / 81; Pulse 88; Resp 18; Temp 97.7; Pulse Ox 97% on R/A; Weight 88.45 kg; Height ll1 5 ft. 10 in. ; Pain 6/10; 10:30 BP 149 / 84; Pulse 74; Resp 18; Pulse Ox 100% on R/A; mb9 11:28 BP 131 / 72; Pulse 70; Resp 18; Pulse Ox 98% on R/A; mb9 08:50 Body Mass Index 27.98 (88.45 kg, 177.8 cm) ll1 08:50 Pain Scale: Adult ll1 MDM: 08:52 Medical Screening Exam initiated luis angel 09:14 Differential Diagnosis: Obstructed Airway Bronchitis Influenza Upper Respiratory luis angel Infection Sinusitis Asthma Exacerbation Viral Syndrome Pneumonia. Data reviewed: vital signs, nurses notes, lab test result(s), radiologic studies, plain films. Consideration of Admission/Observation Escalation of care including admission/observation considered. I considered the following discharge prescriptions or medication management in the emergency department Medications were administered in the Emergency Department. See MAR. Independent interpretation of the following test(s) in the Emergency Department X-Ray: My interpretation is cxr. Test considered but Not performed: CT: no ct chest. Care significantly affected by the following chronic conditions: vaper. 02/08 09:03 Order name: CBC with Diff; Complete Time: 10:11 [facility] 02/08 09:03 Order name: Comprehensive Metabolic Panel; Complete Time: 10:11 [facility] 02/08 09:03 Order name: COVID-19 Ag + Flu A+B Ag; Complete Time: 10:11 [facility] 02/08 09:03 Order name: Group A Streptococcus Rapid; Complete Time: 10:11 [facility] 02/08 09:47 Order name: Throat Culture [facility]PR 02/08 09:03 Order name: Chest Pa And Lat (2 Views) XRAY; Complete Time: 10:11 luis angel 02/08 09:11 Order name: IV Saline Lock; Complete Time: : mb9 Administered Medications: 11:27 Discontinued: magnesium sulfate2 grams IVPB once over 1 hrs mb9 09:20 Drug: Famotidine IVP 20 mg IVP once; dilute with 10 mL 0.9% NaCl; give over 2 minutes ss Route: IVP; Site: right antecubital; 10:24 Follow up: Response: No adverse reaction mb9 09:20 Drug: NS 0.9% IV 1000 ml IV at 1000 ml once; to be given as a bolus over 60 minutes ss Route: IV; Rate: 1000 ml; Site: right antecubital; 10:24 Follow up: Response: No adverse reaction; IV Status: Completed infusion mb9 09:21 Drug: predniSONE PO 60 mg PO once Route: PO; ss 10:19 Follow up: Response: No adverse reaction; Marked relief of symptoms 09:25 Drug: MethylPrednisoLONE IVP 125 mg IVP once Route: IVP; Site: right antecubital; ss 10:24 Follow up: Response: No adverse reaction mb9 09:25 Drug: Levalbuterol Inhalation 3.75 mg Inhalation once Route: Inhalation; 09:25 Drug: Ipratropium Inhalation Aerosol 0.5 mg Inhalation once Route: Inhalation; 09:26 Drug: Dexamethasone PO 1 mg PO once; to nebulizer Route: PO; ss 10:19 Follow up: Response: No adverse reaction 09:26 Drug: Rocephin IV 1 grams IV at per protocol once; Given slow IV push per pharmacy ss instructions Route: IV; Rate: per protocol; Site: right antecubital; 10:24 Follow up: Response: No adverse reaction; IV Status: Completed infusion mb9 09:30 Drug: Tussionex Pennkinetic ER PO Suspension 5 ml PO once Route: PO; mb9 09:50 Follow up: Response: No adverse reaction mb9 10:19 Drug: Zithromax IVPB 500 mg IVPB once over 1 hrs; mix in 250 mL NS Route: IVPB; Infused ss Over: 1 hrs; Site: right antecubital; 11:27 Follow up: Response: No adverse reaction; IV Status: Completed infusion mb9 10:19 Drug: Magnesium Sulfate IVPB 2 grams IVPB once over 1 hrs Route: IVPB; Infused Over: 1 ss hrs; Site: right antecubital; 11:28 Follow up: Response: No adverse reaction; IV Status: Order to discontinue infusion cm10 10:23 CANCELLED (Physician Discretion): ondansetron 8 mg IVP once; over 2 minutes mb9 10:23 Drug: Ondansetron IVP 4 mg IVP once; over 2 minutes Route: IVP; Site: right antecubital;mb9 10:50 Follow up: Response: No adverse reaction mb9 10:26 Drug: Levalbuterol Inhalation 2.5 mg Inhalation once Route: Inhalation; mb9 Disposition Summary: 02/08/25 10:12 Discharge Ordered Notes: Location: Home luis angel Problem: new luis angel Symptoms: have improved luis angel Condition: Fair luis angel Diagnosis - Moderate persistent asthma luis angel - Moderate persistent asthma with (acute) exacerbation luis angel - Tobacco abuse counseling luis angel - Tobacco use luis angel - Cough luis angel - Cough variant asthma luis angel Followup: luis angel - With: Private Physician - When: 2 - 3 days - Reason: Recheck today's complaints, Continuance of care, Re-evaluation by your physician Followup: luis angel - With: Pete Crespo MD - When: 2 - 3 days - Reason: Recheck today's complaints, Re-evaluation by your physician Discharge Instructions: - Discharge Summary Sheet luis angel - Chronic Bronchitis, Adult luis angel - How to Use a Metered Dose Inhaler luis angel - Self-Destructive Behavior luis angel - Steps to Quit Smoking luis angel - Health Risks of Smoking luis angel - Cool Mist Vaporizer luis angel - Cough, Adult, Diuy-xh-Lvis luis angel - How to Use a Nebulizer, Adult [facility] Forms: - Medication Reconciliation Form luis angel - Antibiotic Education luis angel - Prescription Opioid Use luis angel - Patient Portal Instructions [facility] - Leadership Thank You Letter [facility] Prescriptions: - albuterol sulfate 90 mcg/actuation Inhalation HFA Aerosol Inhaler - inhale 2 puff INHALATION route every 4 to 6 hours as needed for shortness of luis angel breath or wheezing; 2 unit; Refills: 0, Product Selection Permitted - ondansetron 4 mg Oral Tablet,disintegrating - take 1 tablet ORAL route every 6-8 hours prn; 20 tablet; Refills: 0, Product luis angel Selection Permitted - Pepcid 20 mg Oral tablet - take 1 tablet ORAL route every 12 hours for 21 days; 42 tablet; Refills: 0, [facility] Product Selection Permitted - Prednisone 20 mg Oral Tablet - take 3 tablets ORAL route once daily for 5 days; 15 tablet; Refills: 0, Product [facility] Selection Permitted - Tessalon Perles 100 mg Oral capsule - take 2 capsule ORAL route every 8 hours As needed; 30 capsule; Refills: 0, [facility] Product Selection Permitted - Albuterol Sulfate 2.5 mg /3 mL (0.083 %) Inhalation Solution for Nebulization - inhale 1 unit NEBULIZATION route every 4-6 hours As needed; 36 unit; Refills: luis angel 0, Product Selection Permitted - Zithromax 500 mg Oral Tablet - take 1 tablet ORAL route once daily for 5 days; 5 tablet; Refills: 0, Product [facility] Selection Permitted Signatures: Dispatcher [employer] EDPaul Yeung MD MD cha Blanchard, Shelby, RN RN ss Mariela Escalera RN RN ll1 Ariel, Inez Cannon RN RN mb9 Yara Ramsay RN cm10 Corrections: (The following items were deleted from the chart) 10:23 10:20 Ondansetron IVP 8 mg IVP once; over 2 minutes ordered. luis angel vazquez
[2025-02-08] MEDS ORDERED: ONDANSETRON 4 MG/2 ML VIAL ONE (10:14)
[2025-02-08 12:21] VITALS: BP 145/81; TEMP 97.7; O2SAT 97
== END 2025-02-08 11:27 | disposition home or self-care (01) ==
LOC: ER 08:35
DX: J45.41 Moderate persistent asthma with (acute) exacerbation (principal); J45.991 Cough variant asthma; Z72.0 Tobacco use; Z71.6 Tobacco abuse counseling; Z11.52 Encounter for screening for COVID-19
CPT/HCPCS: 36415; 71046; 80053; 85025; 87070; 87428; 96365; 96367; 96375; 99285; J0696; J1100; J2405; J2919; J3475; J7030; J7050; J7512; J7614; J7644